=== PATIENT | female | born 1970 | race Caucasian/White ===

== ENCOUNTER 2017-06-10 08:07 | Outpatient (CLI) | payer BC ==
[2017-06-10 08:58] LABS: Hemoglobin A1c 8.3 % (4.0-6.0)
[2017-06-10 09:04] LABS: ALT (SGPT) 64 U/L (8-55); AST (SGOT) 79 U/L (5-34); Albumin 3.9 g/dL (3.5-5.0); Alkaline Phosphatase 42 U/L (40-150); Anion Gap 18 mmol/L (10-20); BUN (Urea Nitrogen) 10 mg/dL (7.0-18.7); Calc. Creatinine Clearance 0 mL/min (70-130); Calcium 9.3 mg/dL (7.8-10.44); Carbon Dioxide 22 mmol/L (22-29); Cardiac Risk 3.7 (Less than 4.5); Chloride 96 mmol/L (98-107); Cholesterol 158 mg/dl (< 200 Desired); Estimated GFR-MDRD 82; Globulin 4.6 g/dL (2.4-3.5); Glucose 195 mg/dL (70-105); HDL Cholesterol 43 mg/dL (>60 Neg Risk); LDL Cholesterol, Calculated 87 mg/dL; Potassium 3.9 mmol/L (3.5-5.1); Protein, Total 8.5 g/dL (6.0-8.3); Sodium 132 mmol/L (136-145); Triglycerides 142 mg/dL (Less than 150)
[2017-06-10 17:12] LABS: Creatinine, Urine 270.94 mg/dL (47-110); Microalbumin Urine 1.5 mg/dL (0.5-50.0); Microalbumin/Creat Ratio 5.5 mg/g (Less than 30)
[2017-06-10 17:15] LABS: Hep B Surf Ag Non-Reactive S/CO (NonReactive)
[2017-06-10 17:16] LABS: Hep C IgG Ab Non-Reactive (NonReactive)
[2017-06-10 17:17] LABS: Hepatitis B Core IGM Abs Non-Reactive (NonReactive)
[2017-06-10 17:41] LABS: Hep C Index 0.15 S/CO (0-0.79)
[2017-06-10 17:42] LABS: Hep A IgM AB Non-Reactive (NonReactive)
[2017-06-10 17:44] LABS: Hep A IgM S/CO 0.15 S/CO (0-0.79)
== END 2017-06-10 08:08 | disposition home or self-care (01) ==
LOC: MADLABBHPM 08:07
PROVIDERS: ATTEND Family Medicine
DX: E78.5 Hyperlipidemia, unspecified (principal); E11.9 Type 2 diabetes mellitus without complications; R74.8 Abnormal levels of other serum enzymes
CPT/HCPCS: 36415; 80053; 80061; 80074; 82043; 83036; 84443